=== PATIENT | female | born 1980 ===

== ENCOUNTER 2022-01-27 08:33 | Outpatient (CLI) | payer OTHER, SELFPAY ==
[2022-01-27 14:09] LABS: Albumin* 4.7 g/dL (3.3-5.0); Chloride* 105 mmol/L (96-114); Sodium* 139 mmol/L (135-149)
[2022-01-27 14:11] LABS: Carbon Dioxide* 27 mmol/L (20-32); Cholesterol* 190 mg/dL (90-199); Creatinine* 0.8 mg/dL (0.5-1.5); Estimated Glomerular Filt Rate 95 ml/min
[2022-01-27 14:12] LABS: Alanine Aminotransferase* 25 U/L (4-35); Alkaline Phosphatase* 72 U/L (40-150); Aspartate Amino Transferase* 24 U/L (12-35); Bilirubin Total* 0.3 mg/dL (0.1-1.5); Blood Urea Nitrogen* 13 mg/dL (5-24); Calcium* 9.8 mg/dL (8.4-10.6); HDL Cholesterol* 52 mg/dL (>=50); LDL Cholesterol Calculated 117 mg/dL (<100); Total Protein* 7.4 g/dL (6.0-8.3); Triglycerides* 103 mg/dL (40-149)
[2022-01-27 14:29] LABS: Glucose* 102 mg/dL (60-115)
[2022-01-27 15:57] LABS: HIV 1/2/P24 Combo Screen* Negative (Negative)
[2022-01-27 16:06] LABS: Hepatitis C Virus Antibody* Negative (Negative)
[2022-01-29 08:18] LABS: Rapid Plasma Reagin (RPR) Non Reactive (Non Reactive)
== END 2022-01-27 08:34 | disposition home or self-care (01) ==
PROVIDERS: PCP Physician Assistant Medical; Visit Provider Physician Assistant Medical
DX: D75.839 Thrombocytosis, unspecified (principal); Z01.419 Encounter for gynecological examination (general) (routine) without abnormal findings; Z13.6 Encounter for screening for cardiovascular disorders; Z13.29 Encounter for screening for other suspected endocrine disorder
CPT/HCPCS: 80053; 80061; 84443; 86592; 86703; 86803; 87252

== ENCOUNTER 2022-02-02 09:33 | Outpatient (CLI) | payer OTHER, SELFPAY ==
[2022-02-02 22:00] LABS: Reticulocyte Hemoglobin Equivi 27.5 pg (29.0-35.0); Reticulocytes Absolute 0.05 # (0.03-0.08)
[2022-02-07 14:36] LABS: HSV 1 Subtype by PCR Not Detected; HSV 2 Subtype by PCR Not Detected; Herpes Simplex Subtype Source Plasma
== END 2022-02-02 09:34 | disposition home or self-care (01) ==
LOC: LKVREF 14:30
PROVIDERS: PCP Physician Assistant Medical; Visit Provider Physician Assistant Medical
DX: Z00.00 Encounter for general adult medical examination without abnormal findings (principal); D75.839 Thrombocytosis, unspecified; K13.70 Unspecified lesions of oral mucosa
CPT/HCPCS: 85045; 87529

== ENCOUNTER 2022-03-18 08:41 | Outpatient (CLI) | payer OTHER, SELFPAY ==
[2022-03-18 15:39] LABS: Vitamin D 25 Hydroxy* 52 ng/mL (30-80)
[2022-03-18 15:40] LABS: C Reactive Protein* 1.1 mg/dL (0.5-1.0)
[2022-03-18 15:53] LABS: Ferritin* 18.1 ng/mL (6.24-137.0)
[2022-03-18 16:05] LABS: Chlamydia DNA Amplified* NOT DETECTED (No Detected); GC DNA Amplified* NOT DETECTED (No Detected)
[2022-03-18 16:13] LABS: Vitamin B12* 675 pg/mL (243-894)
[2022-03-20 01:16] LABS: Homocysteine, Total 7 umol/L (0-15)
[2022-03-23 18:24] LABS: Vitamin B6 (Pyridoxal 5-Phos) 40.2 nmol/L (20.0-125.0)
== END 2022-03-18 08:42 | disposition home or self-care (01) ==
PROVIDERS: PCP Physician Assistant Medical; Visit Provider Physician Assistant Medical
DX: Z01.419 Encounter for gynecological examination (general) (routine) without abnormal findings (principal); D72.829 Elevated white blood cell count, unspecified; L60.8 Other nail disorders; R19.4 Change in bowel habit; R35.0 Frequency of micturition; Z11.3 Encounter for screening for infections with a predominantly sexual mode of transmission
CPT/HCPCS: 82306; 82607; 82728; 83090; 83516; 84207; 86140; 87491; 87591

== ENCOUNTER 2022-06-08 07:52 | Outpatient (CLI) | payer OTHER, SELFPAY ==
--- NOTE | 2022-06-08 08:15 | CRLHL7_ITS ---
For Patients: As a result of the Century Cures Act, medical imaging exams and procedure reports are released immediately into your electronic medical record. You may view this report before your referring provider. If you have questions, please contact your health care provider. BILATERAL SCREENING MAMMOGRAM WITH COMPUTER-AIDED DETECTION AND TOMOSYNTHESIS TECHNIQUE: CC and MLO views were obtained. These mammographic images have been obtained using full-field digital technique. These mammographic images were interpreted with the benefit of computer-aided detection. Breast tomosynthesis was used in this interpretation. COMPARISON FILM: None. This is a baseline study. FINDINGS: The breasts are heterogeneously dense, which may obscure small masses. IMPRESSION: There is no radiographic evidence for malignancy. ASSESSMENT: BI-RADS Category 1: Negative RECOMMENDATION: Routine screening mammogram in 1 year. A lay language report of this examination will be provided to the patient. RITO DELGADILLO M.D. Diagnostic Radiologist [email or web address] Transcribed: 06/09/2022, 10:[address]/Dictated by: Rito Delgadillo MD @ 06/08/2022 1:01:00 PM (Electronically Signed)
--- NOTE | 2022-06-08 09:15 | CRLHL7_ITS ---
For Patients: As a result of the Century Cures Act, medical imaging exams and procedure reports are released immediately into your electronic medical record. You may view this report before your referring provider. If you have questions, please contact your health care provider. CLINICAL HISTORY: pelvic pain TECHNIQUE: 2D osuna scale ultrasound. In addition color Doppler and spectral Doppler analysis was performed of the pelvis using a transabdominal and transvaginal approach. FINDINGS: On transvaginal imaging, the myometrium has a mildly heterogeneous echotexture. The uterus measures 8.5 x 4.7 x 5.0 cm. There is a small intramural fibroid within the left uterine fundus measuring 9 x 8 x 10 millimeters. The endometrial lining measures 9 mm in thickness. The right ovary measures 3.8 x 2.0 x 2.6 cm in size and the left ovary measures 3.3 x 1.2 x 1.3 cm. The ovaries demonstrate normal arterial and venous blood flow on color Doppler and spectral Doppler analysis. Trace physiologic free fluid noted. Complex left ovarian cyst with heterogeneous internal echoes measuring 2.0 x 1.8 x 1.3 cm. IMPRESSION: No ovarian torsion. Trace physiologic free fluid. Complex left ovarian cyst measuring 2.0 cm most consistent with hemorrhagic cyst. Small intramural fibroid measuring 10 millimeters. Dictated by Rito Aguila MD @ 06/08/2022 9:55:01 AM (Electronically Signed)
== END 2022-06-08 07:53 | disposition home or self-care (01) ==
PROVIDERS: PCP Physician Assistant Medical; Visit Provider Physician Assistant Medical
DX: Z12.31 Encounter for screening mammogram for malignant neoplasm of breast (principal); R92.2 Inconclusive mammogram; R10.2 Pelvic and perineal pain; N83.202 Unspecified ovarian cyst, left side; D25.1 Intramural leiomyoma of uterus
CPT/HCPCS: 76830; 76856; 77063; 77067; 93976